=== PATIENT | female | born 1945 | race Caucasian/White ===

== ENCOUNTER 2016-06-04 07:10 | Emergency (ER) | payer MEDICARE ==
[~2016-06-04] VITALS: Ht 157.5 cm; Wt 80.0 kg
[~2016-06-04 07:10] MED LIST: LISI-360 PO; NYST100010 TOP
[2016-06-04 07:15] VITALS: BP 174/96; PULSE 69; RESP 16; TEMP 98; O2SAT 99
[2016-06-04] MEDS ORDERED: LISI10TA3 PO (07:22)
[2016-06-04] MEDS ORDERED: NYST15T TOPICAL (07:28)
--- NOTE | 2016-06-04 07:34 | PD ---
HPI Chief Complaint: Skin Problem Time Seen by Provider: 07:23 Travel History International Travel<30 days: No Contact w/Intl Traveler<30days: No Traveled to known affect area: No History of Present Illness HPI Patient is a 71-year-old female who presents to emergency room with complaints of redness and pruritus to her groin and under her abdominal pannus. Patient reports that symptoms have been ongoing for the past couple of weeks. Patient reports that she has had history of yeast infections to her skin in the past, reports that she recently started exercising, reports that she is trying to keep this area clean and dry but is concerned as the area is pruritic. Patient reports that the last time she had this, her [employer] gave her a antifungal powder which took away all her symptoms. Patient with no fevers or chills at this time. Patient with no other complaints. PFSH Past Medical History Blood Disorders: No Heart Rhythm Problems: No Cancer: Yes (ENDOMETRIAL CANCER) Cardiovascular Problems: Yes High Cholesterol: No Chemotherapy: No Chest Pain: No Congestive Heart Failure: No Diabetes: No Endocrine: No Genitourinary: No Hepatitis: No Hiatal Hernia: No Hypertension: Yes Immune Disorder: No Musculoskeletal: No Neurologic: No Psychiatric: No Reproductive: No Respiratory: No Radiation Therapy: No Thyroid Disease: No Tubal Ligation: Yes Past Surgical History Abdominal Surgery: Yes (LAP SAL) Cholecystectomy: Yes Gynecologic Surgery: Yes (D&C X 2 1970; TUBAL LIGATION; D&C 2011) Hysterectomy: Yes Oral Surgery: Yes (T&A CHILDHOOD) Pacemaker: No Tonsillectomy: Yes Social History Alcohol Use: Yes (OCC.) Tobacco Use: No Substance Use: No Allergies-Medications (Allergen,Severity, Reaction): Coded Allergies: No Known Allergies (Verified , 12/04/13) Reported Meds & Prescriptions Reported Meds & Active Scripts Active Reported Lisinopril 10 Mg Tab 10 Mg PO DAILY Review of Systems General / Constitutional: No: Fever Eyes: No: Visual changes HENT: No: Headaches Cardiovascular: No: Chest Pain or Discomfort Respiratory: No: Shortness of Breath Gastrointestinal: No: Abdominal Pain Genitourinary: No: Dysuria Musculoskeletal: No: Pain Skin: Positive Rash, Positive Itching Neurologic: No: Weakness Psychiatric: No: Depression Endocrine: No: Polydipsia Hematologic/Lymphatic: No: Easy Bruising Physical Exam Narrative GENERAL: nad, nontoxic SKIN: Warm and dry. patient with erythema to right groin and under abdominal pannus, no signs of cellulitis or infection, no streaking, no petechia or purpura HEAD: Atraumatic. Normocephalic. . NECK: Trachea midline. No JVD. CARDIOVASCULAR: Regular rate and rhythm. No murmur appreciated. RESPIRATORY: No accessory muscle use. Clear to auscultation. Breath sounds equal bilaterally. GASTROINTESTINAL: Abdomen soft, non-tender, nondistended. Hepatic and splenic margins not palpable. MUSCULOSKELETAL: No obvious deformities. No clubbing. No cyanosis. No edema. NEUROLOGICAL: Awake and alert Motor grossly within normal limits. Normal speech. PSYCHIATRIC: Appropriate mood and affect; insight and judgment normal. Data Data Last Documented VS Vital Signs Date Time Temp Pulse Resp B/P Pulse Ox O2 Delivery O2 Flow Rate FiO2 06/04/16 07:22 16 06/04/16 07:15 98.0 69 174/96 99 [facility] Medical Decision Making Medical Screen Exam Complete: Yes Emergency Medical Condition: Yes Interpretation(s) Vital Signs Date Time Temp Pulse Resp B/P Pulse Ox O2 Delivery O2 Flow Rate FiO2 06/04/16 07:22 16 06/04/16 07:15 98.0 69 16 174/96 99 Differential Diagnosis Yeast infection, shingles, cellulitis Narrative Course Patient is a 71-year-old female who presents to emergency room with complaints of redness and pruritus to her groin and under her abdominal pannus. Patient reports that symptoms have been ongoing for the past couple of weeks. Patient reports that she has had history of yeast infections to her skin in the past, reports that she recently started exercising, reports that she is trying to keep this area clean and dry but is concerned as the area is pruritic. Patient with no fevers or chills at this time. Patient with no other complaints. On exam, patient with what appears to be fungal infection under her abdominal tenderness and right groin, this is not cellulitic in nature. Will give her prescription for nystatin cream. Signs and symptoms of when to return to the emergency room was reviewed with patient. Diagnosis Primary Impression: Marily infection Patient Instructions: General Instructions Additional Instructions: Please follow-up with your primary care doctor as soon as possible Return to emergency room as needed Keep area dry and clean, apply nystatin cream every 6 hours, return to the emergency room if symptoms worsen or progress Med/Other Pt SpecificInfo: Prescription(s) given Scripts Nystatin Topical 100,000 unit/gm Cream1 Applic TOPICAL Q6HR #30 GM Ref 0 Prov:Jaz Solis DO 06/04/16 Disposition: 01 DISCHARGE HOME Condition: Stable Jaz Solis DO Jun 04, 2016 07:34
== END 2016-06-04 07:48 | disposition home or self-care (01) ==
LOC: PHEFT 07:10
DX: B37.9 Candidiasis, unspecified (principal); I10 Essential (primary) hypertension
CPT/HCPCS: 99283